=== PATIENT | female | born 1955 | race Caucasian/White ===

== ENCOUNTER → 2016-05-21 | Outpatient (CLI) | payer BC | LOC: MAMO 13:00 | DX: Z12.31 Encounter for screening mammogram for malignant neoplasm of breast (principal) | CPT/HCPCS: G0202 ==

== ENCOUNTER → 2020-06-18 | Outpatient (CLI) | payer OTHER ==
[~2020-06-18] MED LIST: ASPIRIN81 MG PO; LISINOPRIL-HCT1 EACH PO; PERCOCET 10-321 EACH PO; PERCOCET 5-3251 EACH PO; SIMVASTATIN20 MG PO
== END ==
LOC: EXRD 05-08 09:30
DX: Z78.0 Asymptomatic menopausal state (principal); M85.88 Other specified disorders of bone density and structure, other site
CPT/HCPCS: 77080

== ENCOUNTER → 2020-11-28 | Outpatient (CLI) | payer OTHER | LOC: MAMO 12:38 | DX: Z12.31 Encounter for screening mammogram for malignant neoplasm of breast (principal) | CPT/HCPCS: 77063; 77067 ==